=== PATIENT | female | born 1980 | race Caucasian/White ===

== ENCOUNTER 2021-05-14 18:21 | Emergency (ER) | payer OTHER ==
[~2021-05-14] VITALS: Ht 157.4 cm; Wt 72.6 kg
[~2021-05-14 18:21] MED LIST: AMOXICILLIN500 MG PO; ATIVAN1 MG PO; FENTANYL TR50 MCG/HR TD; FLEXERIL10 MG PO; FLEXERIL5 MG PO; FLORINEF0.1 MG PO; HYDROCODONE BIT1 T11 PO; IBU600 MG PO; METFORMIN500 MG PO; NEURONTIN300 MG PO; PREDNICOT20 MG PO; SYNTHROID0.025 MG PO; TESSALON PERLE100 M1 PO; VICODIN 5/500 505 MG PO; ZITHROMAX Z PA250 MG PO; ZOFRAN ODT4 MG SL; ZOLOFT50 MG PO; Zofran4 MG PO
== END 2021-05-14 20:00 | disposition home or self-care (01) ==
LOC: ED 18:21
DX: J02.9 Acute pharyngitis, unspecified (principal); Z20.822 Contact with and (suspected) exposure to COVID-19; R50.9 Fever, unspecified; R11.0 Nausea

== ENCOUNTER 2022-11-19 10:15 | Emergency (ER) | payer OTHER ==
[~2022-11-19] VITALS: Ht 154.9 cm; Wt 83.9 kg
[2022-11-19] MEDS ORDERED: AMOX-CLAV 875-1 EACH PO (10:44)
[2022-11-19] MEDS ORDERED: TRAMADOL HCL50 MG PO (10:45)
== END 2022-11-19 11:06 | disposition home or self-care (01) ==
LOC: ED 10:15
DX: K04.7 Periapical abscess without sinus (principal); K02.9 Dental caries, unspecified; Z98.51 Tubal ligation status; Z98.890 Other specified postprocedural states; F17.200 Nicotine dependence, unspecified, uncomplicated

== ENCOUNTER 2022-12-26 08:34 | Emergency (ER) | payer OTHER ==
[~2022-12-26] VITALS: Ht 154.9 cm; Wt 86.2 kg
[~2022-12-26 08:34] MED LIST changes: +AMOX-CLAV 875-1 EACH PO; +TRAMADOL HCL50 MG PO
[2022-12-26] MEDS ORDERED: BUPRENORPHINE-1 EAC2 SL (08:47)
[2022-12-26 09:17] LABS: BASO % 0.3 % (0.0-1.0); EOS # 0.1 10*3/uL (0.0-0.4); EOS % 1.4 % (1.0-4.0); HEMATOCRIT 38.1 % (37.0-47.0); LYMPH # 1.7 10*3/uL (1.3-4.4); LYMPH % 27.6 % (27.0-41.0); MEAN CELL VOLUME 84.1 fl (81.0-99.0); MEAN CORPUSCULAR HGB 26.3 pg (27.0-31.0); MEAN CORPUSCULAR HGB CONC 31.2 g/dl (33.0-37.0); MEAN PLATELET VOLUME 9.6 fl (9.6-12.3); MONO # 0.6 10*3/uL (0.1-1.0); MONO % 8.8 % (3.0-9.0); NEUT # 3.8 10*3/uL (2.3-7.9); NEUT % 61.6 % (47.0-73.0); PLATELET COUNT AUTOMATED 231 10*3/uL (130-400); RED BLOOD COUNT 4.53 10*6/uL (4.10-5.10); RED CELL DISTRI WIDTH 17.9 % (0-14.5); WHITE BLOOD COUNT 6.2 10*3/uL (4.8-10.8)
[2022-12-26 09:40] LABS: ALKALINE PHOSPHATASE 107 U/L (46-116); BETA-HCG, QUANT < 3.0 mIU/mL (3-10); BUN 8 mg/dl (9-23); CHLORIDE 104 mmol/L (98-107); LIPASE 33 U/L (12-53); POTASSIUM 4.4 mmol/L (3.4-5.1); SGPT/ALT 57 U/L (10-49); TOTAL PROTEIN 7.6 gm/dL (6.0-8.0)
[2022-12-26] MEDS ORDERED: CLEOCIN HCL150 MG PO (09:57)
== END 2022-12-26 10:00 | disposition home or self-care (01) ==
LOC: ED 08:34
PROVIDERS: Emergency Medicine
DX: K08.89 Other specified disorders of teeth and supporting structures (principal); Z98.890 Other specified postprocedural states; Z98.51 Tubal ligation status; F17.200 Nicotine dependence, unspecified, uncomplicated; F19.10 Other psychoactive substance abuse, uncomplicated

== ENCOUNTER 2023-04-23 01:13 | Emergency (ER) | payer OTHER ==
[~2023-04-23] VITALS: Wt 88.5 kg
[~2023-04-23 01:13] MED LIST changes: +BUPRENORPHINE-1 EAC2 SL; +CLEOCIN HCL150 MG PO
[2023-04-23 01:50] LABS: BASO % 0.4 % (0.0-1.0); EOS # 0.1 10*3/uL (0.0-0.4); EOS % 1.3 % (1.0-4.0); HEMATOCRIT 43.1 % (37.0-47.0); LYMPH # 3.8 10*3/uL (1.3-4.4); LYMPH % 34.8 % (27.0-41.0); MEAN CELL VOLUME 85.7 fl (81.0-99.0); MEAN CORPUSCULAR HGB 28.4 pg (27.0-31.0); MEAN CORPUSCULAR HGB CONC 33.2 g/dl (33.0-37.0); MEAN PLATELET VOLUME 9.6 fl (9.6-12.3); MONO # 0.8 10*3/uL (0.1-1.0); MONO % 7.5 % (3.0-9.0); NEUT # 6.1 10*3/uL (2.3-7.9); NEUT % 55.5 % (47.0-73.0); PLATELET COUNT AUTOMATED 355 10*3/uL (130-400); RED BLOOD COUNT 5.03 10*6/uL (4.10-5.10); RED CELL DISTRI WIDTH 15.2 % (0-14.5); WHITE BLOOD COUNT 10.9 10*3/uL (4.8-10.8)
[2023-04-23 02:33] LABS: ACT PARTIAL THROMBO TIME 26.2 SECONDS (20.0-32.1); INTERNATIONAL NORM RATIO 0.9 (2.0-3.5)
[2023-04-23 02:44] LABS: ALKALINE PHOSPHATASE 89 U/L (46-116); BUN 17 mg/dl (9-23); CHLORIDE 99 mmol/L (98-107); LIPASE 38 U/L (12-53); POTASSIUM 3.5 mmol/L (3.4-5.1); SGPT/ALT 54 U/L (10-49); TOTAL PROTEIN 7.9 gm/dL (6.0-8.0)
== END 2023-04-23 04:28 | disposition home or self-care (01) ==
LOC: ED 01:13
PROVIDERS: Internal Medicine
DX: K52.89 Other specified noninfective gastroenteritis and colitis (principal); R11.0 Nausea; Z87.442 Personal history of urinary calculi; Z98.51 Tubal ligation status; Z98.890 Other specified postprocedural states; F17.290 Nicotine dependence, other tobacco product, uncomplicated

== ENCOUNTER 2023-08-09 22:14 | Emergency (ER) | payer OTHER ==
[~2023-08-09] VITALS: Ht 154.9 cm; Wt 88.5 kg
[2023-08-09] MEDS ORDERED: ZOLOFT25 MG PO (22:27)
[2023-08-09] MEDS ORDERED: ATIVAN0.5 MG PO (22:28)
[2023-08-09] MEDS ORDERED: TRAZODONE50 MG PO (22:28)
[2023-08-09 22:58] LABS: BASO % 0.4 % (0.0-1.0); EOS # 0.2 10*3/uL (0.0-0.4); EOS % 1.6 % (1.0-4.0); LYMPH # 3.4 10*3/uL (1.3-4.4); LYMPH % 30.3 % (27.0-41.0); MEAN CELL VOLUME 90.3 fl (81.0-99.0); MEAN CORPUSCULAR HGB 29.9 pg (27.0-31.0); MEAN CORPUSCULAR HGB CONC 33.1 g/dl (33.0-37.0); MEAN PLATELET VOLUME 9.1 fl (9.6-12.3); MONO # 0.8 10*3/uL (0.1-1.0); MONO % 7.4 % (3.0-9.0); NEUT # 6.7 10*3/uL (2.3-7.9); NEUT % 59.7 % (47.0-73.0); PLATELET COUNT AUTOMATED 323 10*3/uL (130-400); RED BLOOD COUNT 4.32 10*6/uL (4.10-5.10); RED CELL DISTRI WIDTH 16.5 % (0-14.5); WHITE BLOOD COUNT 11.3 10*3/uL (4.8-10.8)
[2023-08-09 23:16] LABS: ACT PARTIAL THROMBO TIME 26.4 SECONDS (20.0-32.1)
[2023-08-09 23:19] LABS: ALKALINE PHOSPHATASE 94 U/L (46-116); BUN 8 mg/dl (9-23); CHLORIDE 103 mmol/L (98-107); POTASSIUM 3.7 mmol/L (3.4-5.1); SGPT/ALT 133 U/L (5-49); TOTAL PROTEIN 8.2 gm/dL (6.0-8.0)
== END 2023-08-10 01:53 | disposition home or self-care (01) ==
LOC: ED 22:14
PROVIDERS: Nurse Practitioner Family
DX: R07.89 Other chest pain (principal); R74.01 Elevation of levels of liver transaminase levels; R73.9 Hyperglycemia, unspecified; E44.0 Moderate protein-calorie malnutrition; Z79.899 Other long term (current) drug therapy; Z98.890 Other specified postprocedural states; Z98.51 Tubal ligation status

== ENCOUNTER 2024-01-15 19:27 | Emergency (ER) | payer OTHER ==
[~2024-01-15] VITALS: Ht 157.4 cm; Wt 86.2 kg
[~2024-01-15 19:27] MED LIST changes: +ATIVAN0.5 MG PO; +TRAZODONE50 MG PO; +ZOLOFT25 MG PO
[2024-01-15] MEDS ORDERED: DIAZEPAM5 MG PO (19:37)
[2024-01-15] MEDS ORDERED: BUSPAR15 MG PO (19:37)
[2024-01-15 19:57] LABS: BASO # 0.1 10*3/uL (0.0-0.1); BASO % 0.6 % (0.0-1.0); EOS # 0.1 10*3/uL (0.0-0.4); EOS % 1.7 % (1.0-4.0); HEMATOCRIT 34.9 % (37.0-47.0); LYMPH # 3.1 10*3/uL (1.3-4.4); LYMPH % 37.9 % (27.0-41.0); MEAN CELL VOLUME 86.8 fl (81.0-99.0); MEAN CORPUSCULAR HGB 27.6 pg (27.0-31.0); MEAN CORPUSCULAR HGB CONC 31.8 g/dl (33.0-37.0); MONO # 0.7 10*3/uL (0.1-1.0); MONO % 8.4 % (3.0-9.0); NEUT # 4.1 10*3/uL (2.3-7.9); NEUT % 50.3 % (47.0-73.0); PLATELET COUNT AUTOMATED 276 10*3/uL (130-400); RED BLOOD COUNT 4.02 10*6/uL (4.10-5.10); RED CELL DISTRI WIDTH 17.6 % (0-14.5); WHITE BLOOD COUNT 8.2 10*3/uL (4.8-10.8)
[2024-01-15 20:06] LABS: BILIRUBIN Negative (Negative); BLOOD Negative (Negative); CLARITY Clear (Clear); COLOR Yellow (Yellow); GLUCOSE Negative (Negative); KETONE Negative (Negative); LEUKO ESTERASE Negative (Negative); NITRITE Negative (Negative); SPECIFIC GRAVITY <= 1.005 (1.001-1.030); UROBILINOGEN 0.2 E.U./dl (0.0-1.0)
[2024-01-15 20:13] LABS: URINE AMPHETAMINES Negative (1000ng/ml); URINE BARBITURATES Negative (200ng/ml); URINE BENZODIAZEPINES Positive (200ng/ml); URINE CANNABINOIDS (THC) Positive (50ng/ml); URINE COCAINE Negative (300ng/ml); URINE METHADONE Negative (300ng/ml); URINE OPIATES Negative (300ng/ml); URINE PHENCYCLIDINE Negative (25ng/ml)
[2024-01-15 20:15] LABS: ALKALINE PHOSPHATASE 81 U/L (46-116); BUN 7 mg/dl (9-23); CHLORIDE 104 mmol/L (98-107); ETHYL ALCOHOL 129.7 mg/dl (<3); POTASSIUM 2.9 mmol/L (3.4-5.1); SGPT/ALT 38 U/L (5-49); TOTAL PROTEIN 7.5 gm/dL (6.0-8.0)
[2024-01-15 20:15] LABS: BACTERIA TRACE
[2024-01-15 20:16] LABS: EPITHELIAL CELLS 0-2; RBC 0-2 rbc/hpf (0-2)
[2024-01-15] MEDS ORDERED: SODIUM CHLORIDE 0.9% 1,000 ML IV ONE (21:45)
[2024-01-15] MEDS ORDERED: Thiamine 200 MG/2 ML VIAL IV ONE (21:45)
== END 2024-01-15 22:32 | disposition home or self-care (01) ==
LOC: ED 19:27
PROVIDERS: Internal Medicine
DX: R07.89 Other chest pain (principal); F10.90 Alcohol use, unspecified, uncomplicated; E87.6 Hypokalemia; D64.9 Anemia, unspecified; R06.02 Shortness of breath; F41.9 Anxiety disorder, unspecified; Z87.442 Personal history of urinary calculi; F17.200 Nicotine dependence, unspecified, uncomplicated; Z98.890 Other specified postprocedural states; Z98.51 Tubal ligation status

== ENCOUNTER 2024-07-26 05:24 | Emergency (ER) | payer OTHER ==
[~2024-07-26] VITALS: Ht 165.1 cm; Wt 106.6 kg
[~2024-07-26 05:24] MED LIST changes: +BUSPAR15 MG PO; +CEPHALEXIN500 M1 PO; +DIAZEPAM5 MG PO; +DOXYCYCLINE HY100 M3 PO; +VRAYLAR1.5 MG PO; +ZOLOFT100 MG PO
[2024-07-26] MEDS ORDERED: SODIUM CHLORIDE 0.9% 500 ML IV ONE (05:30)
[2024-07-26 05:58] LABS: BASO % 0.2 % (0.0-1.0); EOS # 0.1 10*3/uL (0.0-0.4); EOS % 0.9 % (1.0-4.0); HEMATOCRIT 38.2 % (37.0-47.0); MEAN CELL VOLUME 79.7 fl (81.0-99.0); MEAN CORPUSCULAR HGB 24.2 pg (27.0-31.0); MEAN CORPUSCULAR HGB CONC 30.4 g/dl (33.0-37.0); MEAN PLATELET VOLUME 9.7 fl (9.6-12.3); MONO # 0.6 10*3/uL (0.1-1.0); MONO % 7.7 % (3.0-9.0); NEUT # 5.5 10*3/uL (2.3-7.9); NEUT % 67.9 % (47.0-73.0); PLATELET COUNT AUTOMATED 314 10*3/uL (130-400); RED BLOOD COUNT 4.79 10*6/uL (4.10-5.10); RED CELL DISTRI WIDTH 20.9 % (0-14.5); WHITE BLOOD COUNT 8.1 10*3/uL (4.8-10.8)
[2024-07-26 06:16] LABS: ALKALINE PHOSPHATASE 109 U/L (46-116); BUN 13 mg/dl (9-23); CHLORIDE 101 mmol/L (98-107); POTASSIUM 3.9 mmol/L (3.4-5.1); SGPT/ALT 104 U/L (5-49); TOTAL PROTEIN 8.3 gm/dL (6.0-8.0)
[2024-07-26 06:41] LABS: BILIRUBIN Negative (Negative); BLOOD Negative (Negative); CLARITY Clear (Clear); COLOR Yellow (Yellow); GLUCOSE Negative (Negative); KETONE Negative (Negative); LEUKO ESTERASE Negative (Negative); NITRITE Negative (Negative); SPECIFIC GRAVITY >= 1.030 (1.001-1.030); UROBILINOGEN 0.2 E.U./dl (0.0-1.0)
[2024-07-26 06:48] LABS: URINE AMPHETAMINES Positive (1000ng/ml); URINE BARBITURATES Negative (200ng/ml); URINE BENZODIAZEPINES Negative (200ng/ml); URINE CANNABINOIDS (THC) Positive (50ng/ml); URINE COCAINE Negative (300ng/ml); URINE METHADONE Negative (300ng/ml); URINE OPIATES Negative (300ng/ml); URINE PHENCYCLIDINE Negative (25ng/ml)
[2024-07-26 06:58] LABS: BACTERIA TRACE; RBC 0-2 rbc/hpf (0-2)
[2024-07-26 06:59] LABS: MUCOUS 1+
[2024-07-26 07:01] LABS: ETHYL ALCOHOL < 3.0 mg/dl (<3)
[2024-07-26] MEDS ORDERED: MAGNESIUM SULFATE 100 ML IV ONE (07:05)
[2024-07-26] MEDS ORDERED: MELOXICAM15 MG PO (07:28)
== END 2024-07-26 08:00 | disposition home or self-care (01) ==
LOC: ED 05:24
PROVIDERS: Internal Medicine
DX: S09.90XA Unspecified injury of head, initial encounter (principal); M54.50 Low back pain, unspecified; F17.200 Nicotine dependence, unspecified, uncomplicated; Z98.890 Other specified postprocedural states; Z98.51 Tubal ligation status; Z79.899 Other long term (current) drug therapy; V89.2XXA Person injured in unspecified motor-vehicle accident, traffic, initial encounter; Y93.I9 Activity, other involving external motion; Y92.488 Other paved roadways as the place of occurrence of the external cause; Y99.8 Other external cause status